=== PATIENT | female | born 1980 | race Caucasian/White ===

== ENCOUNTER 2017-04-23 02:38 | Emergency (ER) | payer BC ==
[~2017-04-23] VITALS: Ht 160 cm; Wt 86.2 kg
[2017-04-23 02:40] VITALS: BP 209/94
[2017-04-23] MEDS ORDERED: TRAM1TAB4 PO (02:58)
[2017-04-23] MEDS ORDERED: AMOX500C PO (02:58)
--- NOTE | 2017-04-23 02:58 | PHYS DOC ---
Past Medical History Smoking: Quit Greater Than 1 Year Adult General Chief Complaint Chief Complaint: DENTAL PROBLEM HPI HPI Patient is a 37 year old female who presents with left lower tooth pain. She has had this for a while. She has extensive dental decay. This episode probably started 2 weeks ago she states. No difficulty swallowing, no drooling and no fever. No neck swelling or facial swelling. Review of Systems Review of Systems Constitutional: Denies fever or chills Eyes: Denies change in visual acuity, redness, or eye pain HENT: Denies nasal congestion or sore throat Respiratory: Denies cough or shortness of breath GI: Denies abdominal pain, nausea, vomiting, bloody stools or diarrhea Physical Exam Physical Exam Constitutional: Well developed, well nourished, no acute distress, non-toxic appearance. HENT: Normocephalic, atraumatic, bilateral external ears normal, oropharynx moist, no oral exudates, nose normal. poor dentition; left lower molar is broken. No drooling; no trismus. Eyes: PERRLA, EOMI, conjunctiva normal, no discharge. Neck: Normal range of motion, no tenderness, supple, no stridor. Cardiovascular:Heart rate regular rhythm, no murmur Lungs & Thorax: Bilateral breath sounds clear to auscultation Skin: Warm, dry, no erythema, no rash. Neurologic: Alert and oriented X 3, normal motor function, normal sensory function, no focal deficits noted. Course & Med Decision Making Course & Med Decision Making Evaluated patient. No evidence of dental abscess or airway compromise. Place on amoxicillin and tramadol. KTRACS was reviewed with no recent activity. I have spoken with the patient and/or caregivers. I have explained the patient' s condition, diagnosis and treatment plan based on the information available to me at this time. I have answered the patient's and/or caregiver's questions and addressed any concerns. The patient and/or caregivers have as good an understanding of the patient's diagnosis, condition and treatment plan as can be expected at this point. The patient's condition is stable and appropriate for discharge from the emergency department. The patient will pursue further outpatient evaluation with the primary care physician or other designated or consulting physician as outlined in the discharge instructions. The patient and/or caregivers are agreeable to this plan of care and follow-up instructions have been explained in detail. The patient and/or caregivers have received these instructions in written format and have expressed an understanding of the discharge instructions. The patient and/or caregivers are aware that any significant change in condition or worsening of symptoms should prompt an immediate return to this or the closest emergency department or a call to 911. Jesse Disclaimer Dragon Disclaimer This electronic medical record was generated, in whole or in part, using a voice recognition dictation system. Departure Departure Impression: Primary Impression: Pain, dental Disposition: HOME, SELF-CARE Condition: STABLE Referrals: NO PCP (PCP) Patient Instructions: Dental Car[facility] Scripts Tramadol Hcl/Acetaminophen (TRAMADOL-ACETAMINOPHN 37.5-325) 1 Each Tablet 1 TAB PO Q4H Y for PAIN, #14 TAB 0 Refills Prov: MORAIMA OSCAR MD 04/23/17 Amoxicillin (AMOXICILLIN) 500 Mg Capsule 1 CAP PO TID, #15 CAP Prov: MORAIMA OSCAR MD 04/23/17 MORAIMA OSCAR MD Apr 23, 2017 02:58
== END 2017-04-23 03:04 | disposition home or self-care (01) ==
LOC: ER 02:38
DX: K08.89 Other specified disorders of teeth and supporting structures (principal); K02.9 Dental caries, unspecified; Z87.891 Personal history of nicotine dependence
CPT/HCPCS: 99283